=== PATIENT | female | born 1950 | race Caucasian/White ===

== ENCOUNTER → 2021-07-27 | Outpatient (CLI) | payer MEDICARE, SELFPAY ==
--- NOTE | 2021-07-27 07:54 | CT_ITS ---
INDICATION: hx of anoxic brain injury in 1970's and epilepsy EXAMINATION: CT BRAIN - CT Head or Brain W/O Contrast Injection TECHNIQUE: Multiple axial images were obtained of the head without intravenous contrast. A radiation dose optimization technique was used for this scan. IV Contrast dosage and agent: None. COMPARISON: None. FINDINGS: BRAIN PARENCHYMA: Areas of encephalomalacia visualized most prominent involving the right occipital lobe and the posterior medial right parietal lobe. Marked ventriculomegaly visualized involving bilateral lateral ventricles and the third ventricle, the fourth ventricle is unremarkable, no evidence of tectal mass, would recommend further evaluation to rule out a web in the [place]. Marked atrophic changes visualized in bilateral cerebral hemispheres and in the cerebellum. Scattered areas of low attenuation visualized in the periventricular and subcortical white matter consistent with chronic microvascular disease. A chronic lacunar infarct is visualized in the left basal ganglia. No evidence of intracranial mass or mass effect, no evidence of midline shift is seen. No evidence of parenchymal hemorrhages or contusions, no evidence of intra or extra-axial fluid collection. CALVARIUM, SKULL BASE, PARANASAL SINUSES AND MASTOID AIR CELLS: Clear. No discrete lytic or blastic abnormalities. ORBITS: Both globes, extraocular muscles, optic nerves and retrobulbar fat appear unremarkable. CT/Brain/Head without Contrast IMPRESSION: Marked ventriculomegaly, correlate with prior study when it becomes available, would recommend further evaluation to rule out a web in the [place]. Chronic atrophic brain changes, encephalomalacia and chronic acute lacunar infarcts. Electronically Signed: Mono Small MD at 10:47 EDT ,
== END | disposition home or self-care (01) ==
LOC: CT 07:52
PROVIDERS: PCP Internal Medicine; Referring Provider Psychiatry & Neurology Neurology; Visit Provider Psychiatry & Neurology Neurology
DX: G40.909 Epilepsy, unspecified, not intractable, without status epilepticus (principal); G93.1 Anoxic brain damage, not elsewhere classified
CPT/HCPCS: 70450